=== PATIENT | female | born 1980 | race Caucasian/White ===

== ENCOUNTER 2018-07-23 09:31 | Outpatient (CLI) | payer BC ==
--- NOTE | 2018-07-23 11:02 | RAD ---
CHEST TWO VIEWS: HISTORY: Cough. COMPARISON: None. FINDINGS: Two views of the chest show normal sized cardiomediastinal silhouette. There is no evidence of consol idation, mass, or pleural effusion. The bones are unremarkable. IMPRESSION: No evidence of acute cardiopulmonary disease. POS: [facility]
== END 2018-07-23 09:32 | disposition home or self-care (01) ==
LOC: BICRAD 09:31
PROVIDERS: ATTEND Family Medicine
DX: R05 Cough (principal)
CPT/HCPCS: 71046

== ENCOUNTER 2019-01-12 12:10 | Observation (INO) | payer BC ==
[2019-01-12 12:59] LABS: #Eosinphils 0.4 thou/uL (0.0-0.7); #Lymphocytes 2.3 thou/uL (1.20-3.40); #Monocytes 0.7 thou/uL (0.11-0.59); #Neutrophils 4.7 thou/uL (1.40-6.50); %Basophils 0.5 % (0.0-1.0); %Lymphocytes 28.5 % (21.0-51.0); %Monocytes 8.8 % (0.0-10.0); %Neutrophils 57.2 % (42.0-75.0); Hemoglobin 14.3 g/dL (12.0-16.0); Mean Corpuscular HGB CONC 33.3 g/dL (32.0-36.0); Mean Corpuscular Hemoglobin 28.6 pg (27.0-31.0); Mean Corpuscular Volume 85.9 fL (78.0-98.0); Mean Platelet Volume 8.2 fL (7.4-10.4); Platelet Count 283 thou/uL (130-400); RBC Distribution Width 12.2 % (11.5-14.5); Red Blood Cell (RBC) Count 5.02 mill/uL (4.20-5.40); White Blood Cell (WBC) Count 8.2 thou/uL (4.8-10.8)
--- NOTE | 2019-01-12 13:03 | CT ---
CT OF HEAD NONCONTRAST: 01/12/19 INDICATION: Hypertension, headache, left vision change. FINDINGS: there is no ventriculomegaly, mass effect, midline shift or acute intracranial hemorrhage. Scattered paranasal sinus mucosal thickening is present. IMPRESSION: No acute intracranial abnormalities. POS: [facility]
--- NOTE | 2019-01-12 13:04 | RAD ---
FRONTAL VIEW CHEST: 01/12/19 COMPARISON: 07/23/18 INDICATION: Chest pain. FINDINGS: The lungs are clear. The cardiac silhouette is accentuated by portable technique. Leads overlying guillermina st limit visualization. The chest is otherwise similar to prior exam. IMPRESSION: No focal consolidation. POS: [facility]
[2019-01-12 13:17] LABS: ALT (SGPT) 89 U/L (8-55); AST (SGOT) 51 U/L (5-34); Albumin 4.7 g/dL (3.5-5.0); Alkaline Phosphatase 61 U/L (40-150); Anion Gap 12 mmol/L (10-20); BUN (Urea Nitrogen) 12 mg/dL (7.0-18.7); Bilirubin, Total 0.7 mg/dL (0.2-1.2); CK (CPK) 50 U/L (29-168); Calc. Creatinine Clearance 0 mL/min (70-130); Calcium 10.5 mg/dL (7.8-10.44); Carbon Dioxide 29 mmol/L (22-29); Chloride 100 mmol/L (98-107); Estimated GFR-MDRD 74; Globulin 2.9 g/dL (2.4-3.5); Glucose 106 mg/dL (70-105); Lipase 13 U/L (8-78); Potassium 3.5 mmol/L (3.5-5.1); Protein, Total 7.6 g/dL (6.0-8.3); Sodium 137 mmol/L (136-145)
--- NOTE | 2019-01-12 15:49 | HP ---
PRIMARY CARE PHYSICIAN: Alyssa Bocanegra MD REASON FOR ADMISSION: TIA. HISTORY OF PRESENT ILLNESS: A 38-year-old female who has underlying history of hypertension, diabetes type 2, as well as morbid obesity, who came to emergency room today because she was experiencing headache, left eye blurred vision, and chest fluttering, which was started yesterday. The patient did not go to doctor's office yesterday. The patient was feeling palpitation and blacked out from her left eye. At the same time, she was having left-sided headache. She did not have any left-sided or right-sided, upper or lower extremity paresthesia or weakness. She did not have any nausea or vomiting. Her right eye is completely normal. Per the patient, she did not have this type of symptom in past. She denies any shortness of breath, orthopnea, PND, leg swelling. She denies any constipation, diarrhea, melena, or hematochezia. The patient reports that yesterday, her blood pressure was very high and today, she made appointment with primary care physician, where her blood pressure was also high and that is why, she was instructed to go to emergency room for evaluation. In the emergency room, the patient had a CT brain, which showed no acute intracranial process. Her chest x-ray is also unremarkable. Routine blood test was unremarkable, other than mild AST and ALT elevation. REVIEW OF SYSTEMS: CONSTITUTIONAL: Negative for weight loss or gain, ability to conduct usual activities. SKIN: Negative for rash, itching. EYES: Negative for double vision, pain. ENT/MOUTH: Negative for nose bleeding, neck stiffness, pain, tenderness. CARDIOVASCULAR: Negative for palpitations, dyspnea on exertion, orthopnea. RESPIRATORY: Negative for shortness of breath, wheezing, cough, hemoptysis, fever or night sweats. GASTROINTESTINAL: Negative for poor appetite, abdominal pain, heartburn, nausea, vomiting, constipation, or diarrhea. GENITOURINARY: Negative for urgency, frequency, dysuria, nocturia. MUSCULOSKELETAL: Negative for pain, swelling. NEUROLOGIC/PSYCHIATRIC: Negative for anxiety, depression. ALLERGY/IMMUNOLOGIC: Negative for skin rash, bleeding tendency. Please see my HPI for pertinent positives and negatives. All other review of systems reviewed and negative except as mentioned in HPI. PAST MEDICAL HISTORY: Hypertension, diabetes type 2, nephrolithiasis, morbid obesity. PAST SURGICAL HISTORY: x2, tubal ligation, lithotripsy x4, tonsillectomy. PAST PSYCHIATRIC HISTORY: Reviewed and negative. SOCIAL HISTORY: The patient lives at home. No history of tobacco, alcohol, or illicit drug abuse. FAMILY HISTORY: Hypertension and diabetes runs among several family members. ALLERGIES: SULFA DRUGS. CURRENT HOME MEDICATION: 1. Victoza 1.2 mg weekly. 2. Glipizide XL 2.5 mg daily. 3. Hydrochlorothiazide 25 mg p.o. daily. 4. Losartan 25 mg p.o. daily. PHYSICAL EXAMINATION: VITAL SIGNS: Currently, blood pressure 144/87, pulse 103, respiratory rate 18, temperature 98.2, saturation 97% on room air. Weight 107.9 kg. GENERAL: The patient is currently alert, oriented, no acute distress. HEENT: Head; normocephalic, atraumatic. Eyes; pupils round, and reactive to light. Extraocular muscle intact. ENT; oropharynx within normal limits. Moist mucous membranes. No oral lesion. No pharyngeal erythema. No exudate. NECK: Supple. No JVD. No thyromegaly. No carotid bruit. No jugular venous distention. LUNGS: Clear to auscultation without any rhonchi or rales. CARDIAC: S1, S2 regular. No murmur. No gallop. No rub. ABDOMEN: Obesity present. Bowel sounds present. Nontender. Nondistended. No organomegaly. No mass. No suprapubic tenderness. BACK EXAMINATION: Unremarkable. No CVA tenderness. EXTREMITIES: Upper extremity, passive movement of all joints are normal. Lower extremity, no edema. Good distal pulsation. No calf tenderness. SKIN: No skin rash. HEMATOLOGICAL SYSTEM: No lymphadenopathy. NEUROLOGIC: Nonfocal examination. SIGNIFICANT LABORATORY DATA: CT brain based on my review, no acute intracranial process. EKG based on my review, normal sinus rhythm, within normal limits. CBC; WBC 8.2, hemoglobin 14.3, platelet 283. D-dimer less than 0.27. Lipase 13. CK 50. BMP; sodium 137, potassium 3.5, chloride 100, carbon dioxide 29, BUN 12, creatinine 0.86, glucose 106, calcium 10.5. LFT; albumin 4.7, protein 7.6, AST 51, ALT 89. Chest x-ray based on my review, no acute cardiopulmonary process. CT brain based on my review, no acute intracranial process. ASSESSMENT AND PLAN: 1. Transient ischemic attack with visual symptoms. The patient will need MRI, carotid Doppler, and echocardiography to rule out any occipital lobe involvement. I am also suspecting that because of hypertension and diabetes, the patient may have a mononeuropathy that may be contributing to her presentation. If MRI brain and echocardiography and carotid Doppler is unremarkable, then this patient will need outpatient evaluation with Ophthalmology for eye examination. Meanwhile, we will continue with aspirin 325 mg p.o. daily. We will check lipid profile for risk stratification. We will also check TSH. We will start Lipitor 20 mg p.o. at bedtime. 2. Hypertension, currently well controlled. Continue hydrochlorothiazide and losartan 25 mg p.o. daily. 3. Diabetes type 2. The patient will continue Victoza after discharge, but we will continue glipizide XL 2.5 mg daily and insulin as per sliding scale protocol. Diabetic diet will be given. 4. History of nephrolithiasis, required lithotripsy. 5. Obesity. Dietary education given. Weight loss education given. Healthy lifestyle measure discussed with the patient. 6. Transaminitis. I am suspecting this is from fatty liver. The patient will need repeat LFT tomorrow. 7. Mild hypercalcemia. This could be related with hydrochlorothiazide use. We will give her IV fluid today and we will repeat labs tomorrow. 8. DVT prophylaxis not needed because we are expecting discharge 24 hours and the patient is low risk. 9. Gastrointestinal prophylaxis, Pepcid 20 mg p.o. b.i.d. CODE STATUS: The patient is full code. The patient does not have any surrogate decision maker. DISPOSITION PLAN: Based on above-mentioned investigation result, likely within 24 hours. Job ID: [id number]
[2019-01-12] MEDS ORDERED: Loperamide HCl 2 MG CAP PO PRN (18:15)
[2019-01-12] MEDS ORDERED: hydrALAZINE 20 MG/ML VIAL SLOW IVP PRN (18:15)
[2019-01-12] MEDS ORDERED: Dextrose 50% Abboject 50 ML SYRINGE SLOW IVP PRN (18:15)
[2019-01-12] MEDS ORDERED: Loratadine 10 MG TAB PO PRN (18:15)
[2019-01-12] MEDS ORDERED: Cepastat Lozenges 1 LOZ PO PRN (18:15)
[2019-01-12] MEDS ORDERED: HYDROcodone/Acetaminophen 5/325 mg Tablet PO PRN (18:15)
[2019-01-12] MEDS ORDERED: Ondansetron ODT 4 MG TAB PO PRN (18:15)
[2019-01-12] MEDS ORDERED: Dextrose 5% in Water 1,000 ML IV PRN (18:15)
[2019-01-12] MEDS ORDERED: Guaifenesin DM 100-10/5 ML UDCUP PO PRN (18:15)
[2019-01-12] MEDS ORDERED: Bisacodyl 10 MG SUPP PR PRN (18:15)
[2019-01-12] MEDS ORDERED: Ondansetron PF 4 MG/2 ML Vial IVP PRN (18:15)
[2019-01-12] MEDS ORDERED: Sodium Chloride 0.65% Nasal 44 ML BOT EA NARE PRN (18:15)
[2019-01-12] MEDS ORDERED: Calcium Carbonate 500 MG ChewTAB PO PRN (18:15)
[2019-01-12] MEDS ORDERED: Senokot S 8.6-50 MG TAB PO PRN (18:15)
[2019-01-12] MEDS ORDERED: Acetaminophen 325 MG TAB PO PRN (18:15)
[2019-01-12] MEDS ORDERED: HumaLOG 300 UNITS/3 ML VIAL SC PRN ×2 (18:15)
[2019-01-12] MEDS ORDERED: Zolpidem Tartrate 5 MG TAB PO PRN (18:15)
[2019-01-12] MEDS: Sodium Chloride 0.9% 1,000 ML IV SCH (20:24)
[2019-01-12] MEDS ORDERED: Atorvastatin Calcium 40 MG TAB PO SCH (21:00)
[2019-01-12 21:33] VITALS: BMI 45.0
[2019-01-12] MEDS: Famotidine 20 MG TAB PO SCH (21:50)
[2019-01-13 05:43] LABS: #Basophils 0.1 thou/uL (0.0-0.2); #Eosinphils 0.4 thou/uL (0.0-0.7); #Lymphocytes 2.6 thou/uL (1.20-3.40); #Monocytes 0.7 thou/uL (0.11-0.59); #Neutrophils 3.9 thou/uL (1.40-6.50); %Basophils 0.8 % (0.0-1.0); %Eosinophils 4.7 % (0.0-10.0); %Lymphocytes 34.3 % (21.0-51.0); %Monocytes 8.6 % (0.0-10.0); %Neutrophils 51.7 % (42.0-75.0); Hemoglobin 12.9 g/dL (12.0-16.0); Mean Corpuscular HGB CONC 33.7 g/dL (32.0-36.0); Mean Corpuscular Hemoglobin 28.9 pg (27.0-31.0); Mean Corpuscular Volume 85.6 fL (78.0-98.0); Mean Platelet Volume 8.2 fL (7.4-10.4); Platelet Count 231 thou/uL (130-400); RBC Distribution Width 12.3 % (11.5-14.5); Red Blood Cell (RBC) Count 4.46 mill/uL (4.20-5.40); White Blood Cell (WBC) Count 7.6 thou/uL (4.8-10.8)
[2019-01-13 06:07] LABS: ALT (SGPT) 75 U/L (8-55); AST (SGOT) 43 U/L (5-34); Albumin 3.9 g/dL (3.5-5.0); Alkaline Phosphatase 54 U/L (40-150); Anion Gap 10 mmol/L (10-20); BUN (Urea Nitrogen) 13 mg/dL (7.0-18.7); Bilirubin, Total 0.7 mg/dL (0.2-1.2); Calc. Creatinine Clearance 154 mL/min (70-130); Calcium 9.3 mg/dL (7.8-10.44); Carbon Dioxide 27 mmol/L (22-29); Cardiac Risk 3.8 (Less than 4.5); Chloride 103 mmol/L (98-107); Cholesterol 153 mg/dl (< 200 Desired); Estimated GFR-MDRD 78; Globulin 2.4 g/dL (2.4-3.5); Glucose 119 mg/dL (70-105); HDL Cholesterol 40 mg/dL (>60 Neg Risk); LDL Cholesterol, Calculated 96 mg/dL; Potassium 3.5 mmol/L (3.5-5.1); Protein, Total 6.3 g/dL (6.0-8.3); Sodium 136 mmol/L (136-145); Triglycerides 87 mg/dL (Less than 150)
[2019-01-13] MEDS: Sodium Chloride 0.9% 1,000 ML IV SCH (08:33)
[2019-01-13] MEDS: Famotidine 20 MG TAB PO SCH (08:36)
--- NOTE | 2019-01-13 08:48 | ULT ---
BILATERAL CAROTID DUPLEX ULTRASOUND INCLUDING COLOR AND SPECTRAL DOPPLER IMAGING: DATE: 01/13/19 HISTORY: TIA. FINDINGS: Very subtle or borderline intimal thickening. PSV Right ICA: 97 cm/sec EDV: 50 cm/sec ICA/CCA Ratio: 1.3 PSV Left ICA: 82 cm/sec EDV: 33 cm/sec ICA/CCA Ratio: 1.0 Vertebral flow antegrade. IMPRESSION: No hemodynamically significant stenosis. POS: [facility]
[2019-01-13] MEDS ORDERED: Aspirin 325 mg Enteric Coated Tablet PO SCH (09:00)
[2019-01-13] MEDS ORDERED: Hydrochlorothiazide 25 MG TAB PO SCH (09:00)
[2019-01-13] MEDS ORDERED: Losartan 25 MG TAB PO SCH (09:00)
--- NOTE | 2019-01-13 14:45 | MRI ---
MRI BRAIN NONCONTRAST: Date: 01/13/19 INDICATION: TIA. FINDINGS: There is no evidence of restricted diffusion, mass effect, midline shift, or ventriculomegaly. No hem orrhagic intracranial susceptibility. No significant signal abnormality of the brain parenchyma. The visualized skull base flow-voids are patent. IMPRESSION: No acute intracranial abnormalities. POS: [facility]
[2019-01-13 16:12] VITALS: BP 109/76; TEMP 97.5
--- NOTE | 2019-01-14 12:56 | DIS ---
DATE OF ADMISSION: 01/12/2019 DATE OF DISCHARGE: 01/13/2019 DISCHARGE DIAGNOSES: 1. Possible transient ischemic attack. 2. Likely migraine. 3. Hypertension. 4. Diabetes mellitus. 5. Obesity. 6. Transaminitis likely due to nonalcoholic steatohepatitis. 7. Mild hypercalcemia. HISTORY OF PRESENT ILLNESS: This patient is a 38-year-old female who presented to the hospital with headache, some left eye blurred vision and chest fluttering. Her initial workup was unremarkable including a CT of the brain. HOSPITAL COURSE: The patient was placed on observation on telemetry, which was unremarkable. She had an MRI of the brain which was unremarkable, carotid Dopplers which were unremarkable, echocardiogram which revealed an EF of 55% to 60% and was otherwise normal. The patient's symptoms resolved. She reported that she had had episodes like these before and did have some headache syndrome. It was felt that the patient was more likely having migraine-type symptoms than true ischemic events. With that, the patient was felt to be stable for discharge. PHYSICAL EXAMINATION: VITAL SIGNS: Temperature was 97.5, pulse 93 to 100, respirations 16, O2 saturations 97% on room air, and BP 109/76. GENERAL: The patient was awake and alert. She was ambulating the hallways without difficulty or symptoms. HEART: Regular rate and rhythm. LUNGS: Clear. ABDOMEN: Benign. EXTREMITIES: No edema. DISPOSITION: The patient is discharged to home. ACTIVITY: As tolerated. DIET: She will remain on a diabetic diet. DISCHARGE MEDICATIONS: She will remain on her home medications including glipizide, losartan, and hydrochlorothiazide. FOLLOWUP: She is to follow up with Dr. Bocanegra in 1 week and she can return to the hospital should she have any problems prior to that time. Job ID: [id number]
--- NOTE | 2019-01-16 12:21 | EKG ---
Test Reason : Blood Pressure : / mmHG Vent. Rate : 100 BPM Atrial Rate : 100 BPM P-R Int : 180 ms QRS Dur : 078 ms QT Int : 364 ms P-R-T Axes : 033 005 062 degrees QTc Int : 469 ms Normal sinus rhythm Normal ECG Confirmed by ROLF GRIGSBY, LINDA ([id number]), managing editor SERENITY ELLIS ([id number] on 01/16/2019 12:21:06 PM Referred By: Confirmed By:LINDA BANSAL MD
== END 2019-01-13 17:34 | disposition home or self-care (01) ==
LOC: ERS 12:10 → ERHOLD 15:07 → 2SE 16:32
PROVIDERS: ADMIT Internal Medicine; ATTEND Internal Medicine
DX: H53.8 Other visual disturbances (principal); R51 Headache; I10 Essential (primary) hypertension; E11.9 Type 2 diabetes mellitus without complications; E66.01 Morbid (severe) obesity due to excess calories; R74.0 Nonspecific elevation of levels of transaminase and lactic acid dehydrogenase [LDH]; N20.0 Calculus of kidney; Z68.42 Body mass index [BMI] 45.0-49.9, adult; Z79.84 Long term (current) use of oral hypoglycemic drugs; Z88.2 Allergy status to sulfonamides
CPT/HCPCS: 36415; 36416; 70450; 70551; 71045; 80053; 80061; 82550; 83690; 84443; 84484; 85025; 85379; 93005; 93306; 93880; 96360; 96361; G0378

== ENCOUNTER 2019-04-12 13:29 | Emergency (ER) | payer BC ==
[2019-04-12] MEDS ORDERED: Dexamethasone 10 MG/ML VIAL ONE (15:22)
--- NOTE | 2019-04-12 15:28 | RAD ---
XR Chest Pa Lat STANDARD History: Cough Comparison: Radiograph January 12, 2019 Findings: Subtle right upper lobe airspace opacity is new. Remainder the lungs are clear. No pneumoth orax. No effusion. No acute osseous abnormality. Impression: New right upper lobe faint airspace opacity concerning for infection. Follow-up after devon atment recommended.
== END 2019-04-12 15:50 | disposition home or self-care (01) ==
LOC: ERS 13:29
DX: J18.9 Pneumonia, unspecified organism (principal); I10 Essential (primary) hypertension; J45.909 Unspecified asthma, uncomplicated; Z79.899 Other long term (current) drug therapy; Z87.442 Personal history of urinary calculi
CPT/HCPCS: 71046; J1100

== ENCOUNTER 2019-04-14 17:21 | Emergency (ER) | payer BC ==
--- NOTE | 2019-04-14 21:14 | RAD ---
EXAM: Two views chest PROVIDED CLINICAL HISTORY: Cough COMPARISON: 04/12/2019 FINDINGS: Cardiac and mediastinal silhouette appears within normal limits. Lungs appear free of significant opa city. No pleural fluid or pneumothorax apparent. IMPRESSION: No evidence for an acute cardiopulmonary process.
== END 2019-04-14 22:54 | disposition home or self-care (01) ==
LOC: ERS 17:21
DX: R05 Cough (principal); I10 Essential (primary) hypertension; J45.909 Unspecified asthma, uncomplicated; E11.9 Type 2 diabetes mellitus without complications; Z87.442 Personal history of urinary calculi; Z79.899 Other long term (current) drug therapy
CPT/HCPCS: 71046; 94640; J7620

== ENCOUNTER 2019-06-16 15:12 | Emergency (ER) | payer BC, SELFPAY ==
--- NOTE | 2019-06-16 15:38 | RAD ---
EXAM: Single view of the chest HISTORY: Intermittent chest pain COMPARISON: 01/12/2019 FINDINGS: Single view of the chest shows a normal sized cardiomediastinal silhouette. There is no ewelina dence of consolidation, mass, or pleural effusion. The bones are unremarkable. IMPRESSION: No evidence of acute cardiopulmonary disease
[2019-06-16 16:05] LABS: #Basophils 0.1 thou/uL (0.0-0.2); #Eosinphils 0.2 thou/uL (0.0-0.7); #Lymphocytes 2.1 thou/uL (1.20-3.40); #Monocytes 0.4 thou/uL (0.11-0.59); #Neutrophils 4.1 thou/uL (1.40-6.50); %Basophils 0.9 % (0.0-1.0); %Eosinophils 2.6 % (0.0-10.0); %Lymphocytes 30.3 % (21.0-51.0); %Monocytes 5.7 % (0.0-10.0); %Neutrophils 60.6 % (42.0-75.0); Hemoglobin 14.3 g/dL (12.0-16.0); Mean Corpuscular HGB CONC 34.4 g/dL (32.0-36.0); Mean Corpuscular Hemoglobin 29.2 pg (27.0-31.0); Mean Corpuscular Volume 85.1 fL (78.0-98.0); Mean Platelet Volume 8.7 fL (7.4-10.4); Platelet Count 257 thou/uL (130-400); Red Blood Cell (RBC) Count 4.88 mill/uL (4.20-5.40); White Blood Cell (WBC) Count 6.8 thou/uL (4.8-10.8)
[2019-06-16 16:26] LABS: ALT (SGPT) 77 U/L (8-55); AST (SGOT) 45 U/L (5-34); Albumin 4.5 g/dL (3.5-5.0); Alkaline Phosphatase 65 U/L (40-110); Anion Gap 13 mmol/L (10-20); BUN (Urea Nitrogen) 10 mg/dL (7.0-18.7); Bilirubin, Total 0.8 mg/dL (0.2-1.2); Calc. Creatinine Clearance 0 mL/min (70-130); Carbon Dioxide 27 mmol/L (22-29); Chloride 103 mmol/L (98-107); Estimated GFR-MDRD 72; Globulin 2.7 g/dL (2.4-3.5); Glucose 225 mg/dL (70-105); Potassium 4.1 mmol/L (3.5-5.1); Protein, Total 7.2 g/dL (6.0-8.3); Sodium 139 mmol/L (136-145)
== END 2019-06-16 16:50 | disposition home or self-care (01) ==
LOC: ERS 15:12
DX: R07.9 Chest pain, unspecified (principal); E11.9 Type 2 diabetes mellitus without complications; I10 Essential (primary) hypertension; F17.210 Nicotine dependence, cigarettes, uncomplicated
CPT/HCPCS: 36415; 71045; 80053; 83880; 84484; 85025; 85379; 93005